=== PATIENT | male | born 1940 | race Caucasian/White ===

== ENCOUNTER 2017-12-23 19:35 | Inpatient (IN) | payer OTHER, MEDICARE ==
[~2017-12-23] VITALS: Ht 165.1 cm; Wt 88.5 kg
[2017-12-23 20:47] LABS: HEMATOCRIT 51.9 % (38.0-50.0); HEMOGLOBIN 17.6 G/DL (12.5-16.6); MCH 32.7 PG (29.0-34.0); MCHC 33.9 G/DL (30.0-36.0); MCV 96.3 FL (86-99); PLATELET COUNT 169 K/uL (156-360); RBC DIS.WIDTH-CV 13.6 % (11.8-14.6); RBC DIS.WIDTH-SD 48.6 % (39-53); RED BLOOD COUNT 5.39 M/uL (4.00-5.50); WHITE BLOOD COUNT 11.2 K/uL (4.1-10.2)
[2017-12-23 21:00] LABS: CHLORIDE 101 mEq/L (99-109); POTASSIUM 5.4 mEq/L (3.7-5.4); SODIUM 141 mEq/L (136-147)
[2017-12-23 21:01] LABS: GLUCOSE 138 mg/dL (70-99)
[2017-12-23 21:06] LABS: CREATININE 1.4 mg/dL (0.6-1.3); GFR ESTIMATE (CALCULATED) 53 mL/min/ (58.99-99999); UREA NITROGEN (BUN) 22 mg/dL (9-23)
[2017-12-23 21:13] LABS: TROP-I INTERPRETATION POSITIVE
[2017-12-23 21:14] LABS: TROPONIN-I 1.67 ng/mL (0.0-0.30)
[2017-12-23 21:46] LABS: PTT 28.2 SEC (25-37)
[2017-12-23] MEDS ORDERED: ADVIL200 MG PO (22:10)
[2017-12-23] MEDS ORDERED: VITAMIN D-32000 UNI2 PO (22:11)
[2017-12-23] MEDS ORDERED: FISH OIL 1,2001 EAC7 PO ×2 (22:17)
[2017-12-23] MEDS ORDERED: ECOTRIN325 MG PO (22:18)
[2017-12-23] MEDS ORDERED: NIFEDIPINE ER30 MG PO (22:18)
[2017-12-23] MEDS ORDERED: LOPRESSOR100 M1 PO (22:20)
[2017-12-23] MEDS ORDERED: TAMSULOSIN HCL0.4 MG PO (22:20)
[2017-12-23] MEDS ORDERED: FOSINOPRIL SODI40 MG PO (22:21)
[2017-12-23 23:06] LABS: ALBUMIN 4.8 g/dL (3.2-4.8); CHLORIDE 98 mEq/L (99-109); SODIUM 139 mEq/L (136-147)
[2017-12-23 23:07] LABS: MAGNESIUM 2.5 mg/dL (1.3-2.7); POTASSIUM 6.4 mEq/L (3.7-5.4)
[2017-12-23 23:09] LABS: GLUCOSE 131 mg/dL (70-99); TOTAL PROTEIN 9.3 g/dL (6.4-8.3)
[2017-12-23 23:11] LABS: TOTAL BILIRUBIN 0.6 mg/dL (0.0-1.0)
[2017-12-23 23:12] LABS: ALKALINE PHOSPHATASE 68 IU/L (3-129)
[2017-12-23 23:13] LABS: CREATININE 1.3 mg/dL (0.6-1.3); GFR ESTIMATE (CALCULATED) 57 mL/min/ (58.99-99999)
[2017-12-23 23:14] LABS: AST (GOT) 53 IU/L (2-34); UREA NITROGEN (BUN) 20 mg/dL (9-23)
[2017-12-23 23:15] LABS: ALT (GPT) 33 IU/L (3-49)
[2017-12-23 23:45] VITALS: BP 153/88
[2017-12-24 00:27] LABS: CHLORIDE 99 MEQ/L (99-109); CREATININE 1.1 MG/DL (0.6-1.3); GFR ESTIMATE (CALCULATED) > 59 mL/min/ (58.99-99999); GLUCOSE 143 mg/dL (70-99); SODIUM 137 MEQ/L (136-147); UREA NITROGEN (BUN) 20 mg/dL (9-23)
[2017-12-24 00:28] LABS: POTASSIUM 5.1 MEQ/L (3.7-5.4)
[2017-12-24 00:50] LABS: HDL CHOLESTEROL 49 MG/DL (Desirable>=40); LDL CHOLESTEROL 218 mg/dL (Desirable<100); NON-HDL CHOLESTEROL 249 mg/dL (Desirable<160); TOTAL CHOLESTEROL 298 mg/dL (Desirable<200); TRIGLYCERIDES 154 MG/DL (Normal: <150)
[2017-12-24 04:15] VITALS: BP 139/74
[2017-12-24 05:32] LABS: BASOPHIL (%) 0.4 % (0-1); EOSINOPHIL COUNT 0.1 K/uL (0-0.3); HEMATOCRIT 49.9 % (38.0-50.0); HEMOGLOBIN 16.9 G/DL (12.5-16.6); IMMATURE GRANULOCYTE (%) 0.3 % (0.0-0.7); LYMPHOCYTE (%) 29.2 % (15-42); LYMPHOCYTE COUNT 3.3 K/uL (1.0-2.8); MCH 32.1 PG (29.0-34.0); MCHC 33.9 G/DL (30.0-36.0); MCV 94.7 FL (86-99); MONOCYTE (%) 9.2 % (3-12); MONOCYTE COUNT 1.1 K/uL (0-0.8); NEUTROPHIL (%) 59.9 % (45-76); NEUTROPHIL COUNT 6.8 K/uL (1.8-6.4); PLATELET COUNT 180 K/uL (156-360); RBC DIS.WIDTH-CV 13.4 % (11.8-14.6); RBC DIS.WIDTH-SD 47.7 % (39-53); RED BLOOD COUNT 5.27 M/uL (4.00-5.50); WHITE BLOOD COUNT 11.4 K/uL (4.1-10.2)
[2017-12-24 06:30] LABS: TROP-I INTERPRETATION POSITIVE; TROPONIN-I 4.07 ng/mL (0.0-0.30)
[2017-12-24 06:51] VITALS: BP 145/83
[2017-12-24 07:44] LABS: ALKALINE PHOSPHATASE 53 IU/L (3-129); ALT (GPT) 21 IU/L (3-49); AST (GOT) 36 IU/L (2-34); CHLORIDE 99 MEQ/L (99-109); CREATININE 1.1 MG/DL (0.6-1.3); GFR ESTIMATE (CALCULATED) > 59 mL/min/ (58.99-99999); GLUCOSE 123 mg/dL (70-99); POTASSIUM 4.5 MEQ/L (3.7-5.4); SODIUM 139 MEQ/L (136-147); TOTAL BILIRUBIN 0.7 MG/DL (0.0-1.0); TOTAL PROTEIN 7.5 G/DL (6.4-8.3); UREA NITROGEN (BUN) 18 mg/dL (9-23)
[2017-12-24 10:55] VITALS: BP 116/82
[2017-12-24 12:00] LABS: TROP-I INTERPRETATION POSITIVE; TROPONIN-I 3.39 ng/mL (0.0-0.30)
[2017-12-24 15:35] VITALS: BP 169/86
[2017-12-24 19:30] VITALS: BP 134/67
[2017-12-24 22:30] VITALS: BP 131/84
[2017-12-25 04:30] VITALS: BP 108/53
[2017-12-25 06:42] LABS: BASOPHIL (%) 0.6 % (0-1); BASOPHIL COUNT 0.1 K/uL (0-0.1); EOSINOPHIL COUNT 0.1 K/uL (0-0.3); HEMATOCRIT 47.3 % (38.0-50.0); HEMOGLOBIN 16.1 G/DL (12.5-16.6); IMMATURE GRANULOCYTE (%) 0.4 % (0.0-0.7); LYMPHOCYTE (%) 32.2 % (15-42); LYMPHOCYTE COUNT 2.6 K/uL (1.0-2.8); MCH 32.3 PG (29.0-34.0); MCV 94.8 FL (86-99); MONOCYTE (%) 11.6 % (3-12); MONOCYTE COUNT 0.9 K/uL (0-0.8); NEUTROPHIL (%) 54.2 % (45-76); NEUTROPHIL COUNT 4.4 K/uL (1.8-6.4); PLATELET COUNT 157 K/uL (156-360); RBC DIS.WIDTH-CV 13.7 % (11.8-14.6); RBC DIS.WIDTH-SD 47.8 % (39-53); RED BLOOD COUNT 4.99 M/uL (4.00-5.50); WHITE BLOOD COUNT 8.1 K/uL (4.1-10.2)
[2017-12-25 07:04] LABS: CHLORIDE 102 MEQ/L (99-109); CREATININE 1.1 MG/DL (0.6-1.3); GFR ESTIMATE (CALCULATED) > 59 mL/min/ (58.99-99999); GLUCOSE 128 mg/dL (70-99); POTASSIUM 4.3 MEQ/L (3.7-5.4); SODIUM 135 MEQ/L (136-147); UREA NITROGEN (BUN) 19 mg/dL (9-23)
[2017-12-25 07:09] VITALS: BP 168/86
[2017-12-25 11:26] VITALS: BP 140/78
[2017-12-25 15:43] VITALS: BP 162/86
[2017-12-25 15:56] VITALS: BP 142/80
[2017-12-25 19:51] VITALS: BP 143/74
[2017-12-26] VITALS (7 sets, daily range): BP systolic 123–156; BP diastolic 62–86
[2017-12-26 10:50] LABS: HEMATOCRIT 50.5 % (38.0-50.0); HEMOGLOBIN 17.3 G/DL (12.5-16.6); MCH 32.6 PG (29.0-34.0); MCHC 34.3 G/DL (30.0-36.0); MCV 95.1 FL (86-99); NRBC (%) 0.7 /100 WBC (0-0); PLATELET COUNT 168 K/uL (156-360); RBC DIS.WIDTH-CV 13.8 % (11.8-14.6); RBC DIS.WIDTH-SD 48.7 % (39-53); RED BLOOD COUNT 5.31 M/uL (4.00-5.50); WHITE BLOOD COUNT 8.7 K/uL (4.1-10.2)
[2017-12-26 11:12] LABS: CHLORIDE 102 MEQ/L (99-109); CREATININE 1.2 MG/DL (0.6-1.3); GFR ESTIMATE (CALCULATED) > 59 mL/min/ (58.99-99999); GLUCOSE 133 mg/dL (70-99); POTASSIUM 4.7 MEQ/L (3.7-5.4); SODIUM 138 MEQ/L (136-147); UREA NITROGEN (BUN) 19 mg/dL (9-23)
[2017-12-27 04:07] VITALS: BP 119/63
[2017-12-27 07:43] VITALS: BP 142/78
[2017-12-27] MEDS ORDERED: ATORVASTATIN CA40 MG PO (11:02)
[2017-12-27] MEDS ORDERED: EZETIMIBE10 MG PO (11:02)
[2017-12-27] MEDS ORDERED: CLOPIDOGREL75 MG PO (11:02)
[2017-12-27] MEDS ORDERED: LORAZEPAM1 MG PO (11:02)
== END 2017-12-27 11:52 | disposition home or self-care (01) | DRG 281 ==
LOC: EME 19:35 → EDOF 22:04 → 4EAST 22:04 → ENRESERV 22:06 → 4EAST 23:43
PROVIDERS: Emergency Medicine; Hospitalist; Internal Medicine; Student in an Organized Health Care Education/Training Program
DX: I21.4 Non-ST elevation (NSTEMI) myocardial infarction (principal); N17.9 Acute kidney failure, unspecified; E86.0 Dehydration; E78.5 Hyperlipidemia, unspecified; I10 Essential (primary) hypertension; E66.8 Other obesity; F41.9 Anxiety disorder, unspecified; N40.0 Benign prostatic hyperplasia without lower urinary tract symptoms; I25.10 Atherosclerotic heart disease of native coronary artery without angina pectoris; I25.2 Old myocardial infarction; Z68.32 Body mass index [BMI] 32.0-32.9, adult; Z79.82 Long term (current) use of aspirin; Z87.442 Personal history of urinary calculi; Z87.891 Personal history of nicotine dependence; Z79.899 Other long term (current) drug therapy; Z82.49 Family history of ischemic heart disease and other diseases of the circulatory system; Z83.3 Family history of diabetes mellitus; Z95.5 Presence of coronary angioplasty implant and graft
CPT/HCPCS: 71046; 80048; 80048 91; 80053; 80061; 83735; 84484; 85025; 85027; 85610; 85730; 93005; 93306; 99281; 99285; C1769; C1887; J1644; J2250; J3010; J7030; J7040